=== PATIENT | female | born 1965 | race American Indian/Alaskan Native ===

== ENCOUNTER 2021-02-20 07:17 | Emergency (ER) | payer OTHER ==
[2021-02-20 07:27] VITALS: BP 139/91
[2021-02-20 10:15] LABS: Basophils # (Auto) 0.1 K/mm3 (0.0-0.1); Basophils % (Auto) 1.6 % (0.0-1.8); Eosinophils # (Auto) 0.1 K/mm3 (0.0-0.4); Hematocrit 40.3 % (30.3-42.9); Hemoglobin 13.6 gm/dl (10.1-14.3); Lymphocytes # (Auto) 1.5 K/mm3 (1.2-5.4); Lymphocytes % (Auto) 43.5 % (13.4-35.0); Mean Corpuscular HGB Conc 34 % (30-34); Mean Corpuscular Volume 98 fl (79-97); Monocytes # (Auto) 0.3 K/mm3 (0.0-0.8); Monocytes % (Auto) 9.1 % (0.0-7.3); Platelet Count 197 K/mm3 (140-440); Red Blood Count 4.11 M/mm3 (3.65-5.03); Red Cell Distribution Width 13.8 % (13.2-15.2)
[2021-02-20 10:28] LABS: Alanine Aminotransferase 17 units/L (7-56); Albumin 4.2 g/dL (3.9-5); BUN/Creatinine Ratio 18; Blood Urea Nitrogen 14 mg/dL (7-17); Calcium 9.8 mg/dL (8.4-10.2); Hemolysis Index 8
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
[2021-02-20] MEDS ORDERED: KETOROLAC 60 MG/2 ML INJ IM ONE (11:00)
[2021-02-20] MEDS ORDERED: ACETAMINOPHEN 500 MG TAB PO STA (11:00)
[2021-02-20] MEDS ORDERED: IBUPROFEN 800 MG TAB PO STA (11:00)
--- NOTE | 2021-02-20 11:27 | XRay Report ---
RIGHT SHOULDER 3 VIEWS INDICATION: Right shoulder pain after fall 2 weeks ago.. COMPARISON: No relevant prior imaging study available. FINDINGS: No acute, displaced fracture or dislocation is seen. Moderate acromioclavicular degenerative change i s noted. IMPRESSION: 1. No acute findings. Signer Name: Armando Emerson MD Signed: 02/20/2021 11:22 AM Workstation Name: [id number]
--- NOTE | 2021-02-21 09:16 | Electrocardiograph Report ---
[facility] Test Date: 2021-02-20 Test Time: 07:34:45 Pat Name: ELE CARROLL Department: Room: Gender: F Stitching Department Supervisor: LETITIA : 1965 Requested By: JW BURDEN Order Number: [id number] Reading MD: Nolan Curtis Measurements Intervals [place] Rate: 67 P: 20 VT: 172 QRS: -25 QRSD: 92 T: 29 QT: 437 QTc: 461 Interpretive Statements Sinus rhythm nonspecific st-t No previous ECG available for comparison Electronically Signed On 02-21-2021 9:16:44 EDT by Nolan Curtis
== END 2021-02-20 12:42 | disposition home or self-care (01) ==
LOC: ED 07:17
DX: S49.91XA Unspecified injury of right shoulder and upper arm, initial encounter (principal); R42 Dizziness and giddiness; Z98.890 Other specified postprocedural states; X58.XXXA Exposure to other specified factors, initial encounter; Y93.89 Activity, other specified; Y92.89 Other specified places as the place of occurrence of the external cause; Y99.8 Other external cause status
CPT/HCPCS: 36415; 80053; 84484; 85025; 93005; 99284

== ENCOUNTER 2021-03-26 12:27 | Emergency (ER) | payer OTHER ==
[2021-03-26] MEDS ORDERED: ACETAMINOPHEN 325 MG/10.15 ML ORAL LIQD UNIT DOSE PO ONE (13:41)
[2021-03-26] MEDS ORDERED: guaiFENesin DM 200/20 MG ORAL LIQD 10 ML PO ONE (13:41)
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
--- NOTE | 2021-03-26 14:51 | XRay Report ---
CHEST 2 VIEWS INDICATION / CLINICAL INFORMATION: Cough. COMPARISON: None available. FINDINGS: SUPPORT DEVICES: None. HEART / MEDIASTINUM: There is mild cardiomegaly with a left ventricular configuration. Pulmonary vasc ulature is normal. There is mild aortic tortuosity without aneurysm. LUNGS / PLEURA: There is mild linear parenchymal opacity in the left lung base. The right lung is derek ar. There is no evidence of pleural effusion. No pneumothorax. ADDITIONAL FINDINGS: No significant additional findings. IMPRESSION: Mild left basilar subsegmental atelectasis. Signer Name: Abdelrahman Thomas MD Signed: 03/26/2021 2:46 PM Workstation Name: [email or web address]
[2021-03-26 16:42] VITALS: BP 112/79
== END 2021-03-26 16:41 | disposition home or self-care (01) ==
LOC: ED 12:27
DX: J98.11 Atelectasis (principal); R05 Cough; Z20.822 Contact with and (suspected) exposure to COVID-19; Z98.890 Other specified postprocedural states
CPT/HCPCS: 71046; 99283

== ENCOUNTER 2021-06-01 07:41 | Emergency (ER) | payer OTHER ==
[2021-06-01 07:49] VITALS: BP 129/79
[2021-06-01] MEDS ORDERED: BENZONATATE 100 MG CAP PO ONE (08:20)
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
--- NOTE | 2021-06-01 08:57 | XRay Report ---
CHEST 2 VIEWS INDICATION / CLINICAL INFORMATION: cough. COMPARISON: 2 views of the chest from 03/26/2021 FINDINGS: SUPPORT DEVICES: None. HEART / MEDIASTINUM: Stable. LUNGS / PLEURA: No significant pulmonary abnormality. No significant pleural effusion. No pneumothora x. ADDITIONAL FINDINGS: No significant additional findings. IMPRESSION: 1. No acute abnormality of the chest. 2. Stable mild cardiomegaly. Signer Name: Ivan Vazquez MD Signed: 06/01/2021 8:52 AM Workstation Name: [id number]
== END 2021-06-01 09:17 | disposition home or self-care (01) ==
LOC: ED 07:41
DX: R05.9 Cough, unspecified (principal); M25.511 Pain in right shoulder; Z86.16 Personal history of COVID-19
CPT/HCPCS: 71046